=== PATIENT | male | born 1975 | race African-American/Black ===

== ENCOUNTER 2021-02-10 10:51 | Emergency (ER) | payer SELFPAY ==
[~2021-02-10] VITALS: Ht 182.9 cm; Wt 81.6 kg
[2021-02-10 11:06] VITALS: BP_SYST 120
--- NOTE | 2021-02-10 11:11 | NUR ---
Patient to ER bed 7 to gown for evaluation. Side rails up. Report given to CALEB HANNAH.
--- NOTE | 2021-02-10 11:20 | NUR ---
Pt walked in to ER with c/o lower back discomfort 2/10 and numbness down left leg x3 days. Denies any injury or trauma. V/S stable, no acute distress noted.
[2021-02-10] MEDS ORDERED: LIDO1ADH77 TD (11:29)
[2021-02-10] MEDS ORDERED: IBUP-1969 PO (11:29)
--- NOTE | 2021-02-10 11:29 | NUR ---
ER Dr. Bejarano at bedside examining patient.
[2021-02-10 11:56] VITALS: BP_SYST 120
--- NOTE | 2021-02-10 11:58 | NUR ---
Patient given written and verbal discharge instructions and verbalizes understanding. ER MD discussed with patient the results and treatment provided. Patient in stable condition. ID arm band removed. Rx of Motrin and Lidocaine Patch given. Patient educated on pain management and to follow up with PMD. Pain Scale 2. Opportunity for questions provided and answered. Medication side effect fact sheet provided.
== END 2021-02-10 11:58 | disposition home or self-care (01) ==
LOC: SED 10:51
DX: M48.02 Spinal stenosis, cervical region (principal); M48.04 Spinal stenosis, thoracic region; R20.2 Paresthesia of skin; Z79.899 Other long term (current) drug therapy
CPT/HCPCS: 99283

== ENCOUNTER 2021-06-28 14:14 | Emergency (ER) | payer BC ==
[~2021-06-28] VITALS: Ht 185.4 cm; Wt 99.8 kg
[~2021-06-28 14:14] MED LIST: IBUP-1969 PO; LIDO1ADH77 TD
--- NOTE | 2021-06-28 14:35 | NUR ---
PT CAME FROM HOME WITH CC OF SEVERE RIGHT SHOULDER PAIN, AAOx3, NAD, VSS. PT HAD BEEN OVER STRETCHING AND ATTEMPTING TO TOUCH THE CEILING WITH SON AND, FELT MILD PAIN LAST NIGHT. WOKE UP THIS MORNING WITH DECREASED MOBILITY. ED MD TO ASSESS PATIENT.
--- NOTE | 2021-06-28 14:35 | NUR ---
ED MD AT BEDSIDE.
[2021-06-28 14:40] VITALS: BP_SYST 140
[2021-06-28] MEDS ORDERED: IBUPROFEN 800 MG TABLET PO ONE (14:45)
[2021-06-28] MEDS ORDERED: LIDOCAINE PATCH 5% 1 EA TP ONE (14:45)
[2021-06-28] MEDS ORDERED: methocarbamoL 500 MG TABLET PO ONE (14:45)
--- NOTE | 2021-06-28 15:05 | NUR ---
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
--- NOTE | 2021-06-28 16:17 | NUR ---
Per Dr. Redmond's request, called Radiology [id number] for update on X-rays report.
[2021-06-28] MEDS ORDERED: LIDOINT TP (16:21)
[2021-06-28] MEDS ORDERED: NAPR-688 PO (16:21)
[2021-06-28] MEDS ORDERED: METH-634 PO (16:21)
--- NOTE | 2021-06-28 16:41 | NUR ---
pt condition stable arm sling applied r/t pt request overall appearances fair discharge teaching and prescriptions teaching given voiced his understanding well pain level 1-2 with movement
[2021-06-28 16:45] VITALS: BP_SYST 127
== END 2021-06-28 16:41 | disposition home or self-care (01) ==
LOC: SED 14:14
DX: S46.911A Strain of unspecified muscle, fascia and tendon at shoulder and upper arm level, right arm, initial encounter (principal); Z79.899 Other long term (current) drug therapy; X50.9XXA Other and unspecified overexertion or strenuous movements or postures, initial encounter; Y93.89 Activity, other specified; Y92.89 Other specified places as the place of occurrence of the external cause; Y99.8 Other external cause status
CPT/HCPCS: 73030; 99284